=== PATIENT | male | born 1990 ===

== ENCOUNTER 2018-04-29 14:29 | Emergency (ER) | payer BC ==
[2018-04-29 14:56] VITALS: BP 140/95
--- NOTE | 2018-04-29 16:05 | UC ---
Back Pain HPI - HPI Summary HPI Summary: PT WAS FIXING UP BULLDOZERS 2 DAYS AGO. LATER THAT DAY DEVELOPED MID/LOW BACK PAIN. NO DISCRETE TRAUMA OR INJURY. DENIES NUMBNESS/TINGLING. NO SADDLE ANESTHESIA. NO LOSS OF BOWEL/BLADDER CONTROL. NO PREVIOUS BACK INJURY. TOOK TYLENOL WHICH DIDN'T HELP. - History of Current Complaint Chief Complaint: UCBackPain Stated Complaint: BACK INJURY Time Seen by Provider: 04/29/18 15:36 Hx Obtained From: Patient Onset/Duration: Gradual Onset, Lasting Days, Still Present Timing: Constant Severity Initially: Moderate Severity Currently: Moderate Pain Intensity: 6 Pain Scale Used: 0-10 Numeric Character: Sharp Aggravating Factor(s): Movement, Bending Alleviating Factor(s): Rest Associated Signs And Symptoms: Negative: Swelling, Redness, Bruising, Weakness, Numbness, Bladder Incontinence, Bowel Incontinence - Allergies/Home Medications Allergies/Adverse Reactions: Allergies Allergy/AdvReac Type Severity Reaction Status Date / Time Penicillins Allergy Unknown Verified 04/29/18 14:56 Reaction Details Sulfa (Sulfonamide Allergy Unknown Verified 04/29/18 14:57 Antibiotics) Reaction Details PMH/Surg Hx/FS Hx/Imm Hx - Additional Past Medical History Additional PMH: PSORIASIS - Surgical History Surgical History: None - Family History Known Family History: Positive: Non-Contributory - Social History Alcohol Use: Occasionally Substance Use Type: None Smoking Status (MU): Light Every Day Tobacco Smoker Review of Systems All Other Systems Reviewed And Are Negative: Yes Constitutional: Positive: Negative Respiratory: Positive: Negative Cardiovascular: Positive: Negative Gastrointestinal: Positive: Negative Genitourinary: Positive: Negative Musculoskeletal: Positive: Decreased ROM, Myalgia Physical Exam Triage Information Reviewed: Yes Appearance: Well-Appearing, No Pain Distress, Well-Nourished Vital Signs: Initial Vital Signs Temp 98.5 F 04/29/18 14:52 Pulse 93 04/29/18 14:52 Resp 12 04/29/18 14:52 BP 140/95 04/29/18 14:52 Pulse Ox 99 04/29/18 14:52 Vital Signs Reviewed: Yes Eyes: Positive: Conjunctiva Clear ENT: Positive: Hearing grossly normal Neck: Positive: Supple Respiratory: Positive: No respiratory distress, No accessory muscle use Cardiovascular: Positive: Pulses Normal Abdomen Description: Positive: Soft Musculoskeletal: Positive: No Edema, ROM Limited @ - BACK FLEXION, Other: - NO TENDERNESS Neurological: Positive: Alert Psychological: Positive: Age Appropriate Behavior Skin: Positive: Rashes - PSORIASIS PLAQUES Back Pain Course/Dx - Course Course Of Treatment: LIKELY ACUTE BACK MUSCLE STRAIN. WILL TREAT WITH FLEXERIL AND NAPROXEN. PATIENT ADVISED TO STRETCH AND GO THROUGH SLOW RANGE OF MOTION EXERCISES. TO ER IF SYMPTOMS WORSEN. NOTE FOR WORK PROVIDED. PATIENT DECLINES X-RAYS TODAY WHICH I THINK IS REASONABLE. - Differential Dx/Diagnosis Provider Diagnosis: Acute mid back pain Discharge - Sign-Out/Discharge Documenting (check all that apply): Patient Departure All imaging exams completed and their final reports reviewed: No Studies - Discharge Plan Condition: Stable Disposition: HOME Prescriptions: Cyclobenzaprine TAB* [Flexeril TAB*] 10 mg PO BID PRN #30 tab PRN Reason: Pain Naproxen [Naproxen 500 mg tab] 500 mg PO BID PRN #30 tablet PRN Reason: Pain Patient Education Materials: Low Back Strain (ED), Back Pain (ED) Forms: *Work Release Referrals: [facility] [Outside] - If Needed Additional Instructions: YOUR SYMPTOMS SHOULD IMPROVE SIGNIFICANTLY OVER THE NEXT 1-2 WEEKS. IF YOU DO NOT IMPROVE EXPECTED FOLLOW-UP WITH YOUR PCP. YOU MAY BENEFIT FROM IMAGING AT THAT TIME. REST. NAPROXEN NEEDED FOR DISCOMFORT. TAKE MUSCLE RELAXER BEFORE BED. BE SURE TO GO THROUGH SLOW RANGE OF MOTION AND STRETCHING EXERCISES DAILY YOU ARE ABLE TO PREVENT STIFFENING UP AND MAKING THE DISCOMFORT WORSE. GO TO THE ED WITHOUT FAIL IF YOU DEVELOP NUMBNESS/TINGLING IN YOUR LEGS, NUMBNESS IN THE GENITAL REGION, LOSS OF BOWEL/BLADDER CONTROL, INTOLERABLE PAIN OR ANY OTHER CONCERNING SYMPTOMS. CALL THE NUMBER BELOW FOR ASSISTANCE IN ESTABLISHING WITH A PCP An additional resource available to assist in finding the appropriate physician for your health care needs is the [facility] ([facility]). You may contact them by calling [phone]. - Billing Disposition and Condition Condition: STABLE Disposition: Home
== END 2018-04-29 16:00 | disposition home or self-care (01) ==
LOC: UCEAST 14:29
DX: M54.6 Pain in thoracic spine (principal); F17.200 Nicotine dependence, unspecified, uncomplicated; Z88.0 Allergy status to penicillin; Z88.2 Allergy status to sulfonamides
CPT/HCPCS: 99211; G0463